=== PATIENT | female | born 1945 | race Caucasian/White ===

== ENCOUNTER 2017-12-30 13:45 | Emergency (ER) | payer BC ==
[~2017-12-30] VITALS: Ht 167.6 cm; Wt 91.0 kg
[2017-12-30 13:54] VITALS: BP 167/80
[2017-12-30] MEDS ORDERED: FLUORESCEIN SODIUM 1MG/STRIP RIGHTEYE ONE (15:00)
[2017-12-30] MEDS ORDERED: TETRACAINE 0.5% OPHTH DROPS 4ML RIGHTEYE ONE (15:00)
[2017-12-30] MEDS ORDERED: TOBRAMYCIN 0.3% OPHTH DROPS 5ML OP STA (15:00)
== END 2017-12-30 15:13 | disposition home or self-care (01) ==
LOC: ER 13:45
DX: S05.00XA Injury of conjunctiva and corneal abrasion without foreign body, unspecified eye, initial encounter (principal); X58.XXXA Exposure to other specified factors, initial encounter; Y93.89 Activity, other specified; Y92.89 Other specified places as the place of occurrence of the external cause; Y99.8 Other external cause status
CPT/HCPCS: 99283

== ENCOUNTER → 2020-01-30 | Outpatient (CLI) | payer OTHER | END | disposition home or self-care (01) | LOC: LAB 16:40 | PROVIDERS: ATTEND Internal Medicine Critical Care Medicine | DX: R05 Cough (principal); Z20.828 Contact with and (suspected) exposure to other viral communicable diseases | CPT/HCPCS: 87635 ==

== ENCOUNTER 2022-09-14 15:09 | Inpatient (IN) | payer BC, OTHER ==
[~2022-09-14] VITALS: Ht 170.2 cm; Wt 106.6 kg
[2022-09-14] VITALS (25 sets, daily range): BP systolic 106–143; BP diastolic 54–89
[2022-09-14] MEDS ORDERED: MORPHINE SULFATE 4 MG/ML CPJ (NOT FOR IM USE) IV STA (15:20)
[2022-09-14] MEDS ORDERED: ASPIRIN 81MG TABLET PO ONE ×2 (15:30→15:45)
[2022-09-14] MEDS ORDERED: LIDOCAINE HCL/PF 1% 10 MG/ML 5ML VIAL ONE (15:42)
[2022-09-14] MEDS ORDERED: IODIXANOL 320MG/ML 100 ML BOTTLE IV ONE ×2 (15:42→16:22)
[2022-09-14] MEDS ORDERED: VERAPAMIL HCL 2.5 MG/1 ML 2ML VIAL IV ONE (15:44)
[2022-09-14] MEDS ORDERED: HEPARIN 5000 UNITS/ML VIAL IV ONE (15:45)
[2022-09-14] MEDS ORDERED: FENTANYL CITRATE/PF 50MCG/ML 2ML VIAL ONE (15:45)
[2022-09-14] MEDS ORDERED: MIDAZOLAM HCL 2 MG/2 ML VIAL ONE (15:46)
[2022-09-14] MEDS ORDERED: DIPHENHYDRAMINE 50MG/ML VIAL ONE (15:50)
[2022-09-14 15:51] LABS: CHLORIDE 107 mEq/L (98-107)
[2022-09-14 15:53] LABS: BASOPHILS % 0.9 % (0.0-2.0); EOSINOPHILS % 2.3 % (0.0-5.0); HEMATOCRIT. 42.9 % (36.0-48.0); HEMOGLOBIN. 14.6 g/dL (12.0-16.0); MEAN CORPUSCULAR HEMOGLOBIN 29.3 pg (28.0-32.0); MEAN CORPUSCULAR VOLUME 85.9 fL (81.0-99.0); MONOCYTES % 8.3 % (2.0-8.0); NEUTROPHILS % 40.5 % (40.0-76.0); PLATELET 351 x1000/uL (130-400); RED BLOOD CELL COUNT 4.99 mill/uL (4.2-5.4); RED CELL DISTRIBUTION WIDTH 13.6 % (11.6-14.6)
[2022-09-14] MEDS ORDERED: TICAGRELOR 90 MG TABLET PO ONE (16:36)
[2022-09-14] MEDS ORDERED: ATROPINE SULFATE 1MG/10ML SYR IV PRN (16:45)
[2022-09-14] MEDS ORDERED: ACETAMINOPHEN 325MG TABLET PO PRN (16:45)
[2022-09-14] MEDS: SODIUM CHLORIDE 0.45% 500 ML IV SCH (17:20)
[2022-09-14 18:14] LABS: INR 1.2; PROTHROMBIN TIME 12.4 sec (9.6-11.0)
[2022-09-14 18:22] LABS: PARTIAL THROMBOPLASTIN TIME 159.3 sec (23.4-31.0)
[2022-09-14] MEDS ORDERED: MAGNESIUM/ALUMINUM HYDROXIDE/SIMETHICONE 30ML UDC PO PRN (18:30)
[2022-09-14] MEDS ORDERED: GUAIFENESIN 200MG/10ML SUGAR FREE UDC PO PRN (18:30)
[2022-09-14] MEDS ORDERED: NALOXONE HCL 0.4MG/ML VIAL IV PRN (19:45)
[2022-09-14] MEDS ORDERED: TRAMADOL 50MG TABLET PO PRN (19:45)
[2022-09-14] MEDS ORDERED: MORPHINE SULFATE 2 MG/ML CPJ (NOT FOR IM USE) IV PRN (19:45)
[2022-09-14] MEDS ORDERED: METOPROLOL TARTRATE 25MG TABLET PO SCH (21:00)
[2022-09-14] MEDS: METOPROLOL TARTRATE 50MG TABLET PO SCH (21:02)
[2022-09-14] MEDS: TICAGRELOR 90 MG TABLET PO SCH (21:02)
[2022-09-14] MEDS: ATORVASTATIN CALCIUM 40MG TABLET PO SCH (21:02)
[2022-09-15] VITALS (60 sets, daily range): BP systolic 57–147; BP diastolic 30–115
[2022-09-15] MEDS: SODIUM CHLORIDE 0.45% 500 ML IV SCH ×3 (01:08→22:03)
[2022-09-15] MEDS: ONDANSETRON HCL 4MG/2ML INJ IV PRN ×2 (04:22→15:10)
[2022-09-15 06:11] LABS: BASOPHILS % 0.3 % (0.0-2.0); EOSINOPHILS % 0.2 % (0.0-5.0); HEMATOCRIT. 39.3 % (36.0-48.0); HEMOGLOBIN. 13.3 g/dL (12.0-16.0); LYMPHOCYTES % 11.5 % (20.0-50.0); MEAN CORPUSCULAR HEMOGLOBIN 29.4 pg (28.0-32.0); MEAN CORPUSCULAR VOLUME 87.2 fL (81.0-99.0); MEAN PLATELET VOLUME 8.7 fl (7.4-10.4); MONOCYTES % 5.2 % (2.0-8.0); NEUTROPHILS % 82.8 % (40.0-76.0); PLATELET 259 x1000/uL (130-400); RED BLOOD CELL COUNT 4.51 mill/uL (4.2-5.4); RED CELL DISTRIBUTION WIDTH 13.5 % (11.6-14.6)
[2022-09-15 06:15] LABS: CHLORIDE 106 mEq/L (98-107)
[2022-09-15] MEDS: ASPIRIN 81MG TABLET PO SCH (09:57)
[2022-09-15] MEDS: METOPROLOL TARTRATE 50MG TABLET PO SCH (09:57)
[2022-09-15] MEDS: TICAGRELOR 90 MG TABLET PO SCH ×2 (09:57→22:01)
[2022-09-15] MEDS ORDERED: PNEUMOCOCCAL 23-VAL P-SAC VAC 0.5 ML IM ONE (10:00)
[2022-09-15] MEDS ORDERED: METOPROLOL SUCCINATE 50MG ER TABLET PO SCH ×2 (11:15→21:00)
[2022-09-15] MEDS: LOSARTAN POTASSIUM 25 MG TABLET PO SCH (11:15)
[2022-09-15] MEDS: FUROSEMIDE 40MG/4ML VIAL IVP NR ×2 (12:05→12:07)
[2022-09-15] MEDS: SPIRONOLACTONE 25MG TABLET PO SCH (12:31)
[2022-09-15] MEDS: ATORVASTATIN CALCIUM 40MG TABLET PO SCH (22:03)
[2022-09-16] VITALS: BP 132/70
[2022-09-16 04:00] VITALS: BP 109/49
[2022-09-16 05:57] LABS: CHLORIDE 107 mEq/L (98-107)
[2022-09-16 06:11] LABS: BASOPHILS % 0.4 % (0.0-2.0); HEMOGLOBIN. 11.5 g/dL (12.0-16.0); LYMPHOCYTES % 24.8 % (20.0-50.0); MEAN CORPUSCULAR HEMOGLOBIN 29.7 pg (28.0-32.0); MEAN CORPUSCULAR VOLUME 87.6 fL (81.0-99.0); MEAN PLATELET VOLUME 8.8 fl (7.4-10.4); MONOCYTES % 10.3 % (2.0-8.0); NEUTROPHILS % 63.5 % (40.0-76.0); PLATELET 182 x1000/uL (130-400); RED BLOOD CELL COUNT 3.88 mill/uL (4.2-5.4); RED CELL DISTRIBUTION WIDTH 13.3 % (11.6-14.6)
[2022-09-16 08:00] VITALS: BP 101/63
[2022-09-16] MEDS ORDERED: POTASSIUM CHLORIDE 20MEQ TABLET SR PO NR (08:00)
[2022-09-16] MEDS: TICAGRELOR 90 MG TABLET PO SCH (08:17)
[2022-09-16] MEDS: ASPIRIN 81MG TABLET PO SCH (08:17)
[2022-09-16] MEDS: LOSARTAN POTASSIUM 25 MG TABLET PO SCH (08:17)
[2022-09-16] MEDS: SPIRONOLACTONE 25MG TABLET PO SCH (08:18)
[2022-09-16] MEDS: SODIUM CHLORIDE 0.45% 500 ML IV SCH (08:24)
[2022-09-16] MEDS ORDERED: ASPI-1160 PO (13:45)
[2022-09-16] MEDS ORDERED: DICL100G31 TP (13:45)
[2022-09-16] MEDS ORDERED: LOSA25TA3 PO (13:45)
[2022-09-16] MEDS ORDERED: TICA90TA PO (13:45)
[2022-09-16] MEDS ORDERED: METO-385 PO (13:45)
[2022-09-16] MEDS ORDERED: LIP40 PO (13:45)
[2022-09-16] MEDS ORDERED: SPIR25TA PO (13:45)
[2022-09-16 13:53] VITALS: BP 111/51
[2022-09-16] MEDS ORDERED: METOPROLOL SUCCINATE 50MG ER TABLET PO SCH (21:00)
[2022-09-17] MEDS ORDERED: SPIRONOLACTONE 25MG TABLET PO SCH (09:00)
[2022-09-17] MEDS ORDERED: LOSARTAN POTASSIUM 25 MG TABLET PO SCH (09:00)
== END 2022-09-16 15:15 | disposition home or self-care (01) | DRG 246 ==
LOC: ER 15:09 → CVICU 16:03 → EEVIPCON 16:03 → EDBEDREQ 16:05 → EDBEDREQTM 16:05 → CVICU 16:59 → 3WST 09-15 21:14
PROVIDERS: ADMIT Internal Medicine; ATTEND Internal Medicine
PROC: 027034Z Dilation of Coronary Artery, One Artery with Drug-eluting Intraluminal Device, Percutaneous Approach (ICD-10-PCS; principal; 2022-09-14)
PROC: 4A023N7 Measurement of Cardiac Sampling and Pressure, Left Heart, Percutaneous Approach (ICD-10-PCS; 2022-09-14)
PROC: B211YZZ Fluoroscopy of Multiple Coronary Arteries using Other Contrast (ICD-10-PCS; 2022-09-14)
DX: I21.19 ST elevation (STEMI) myocardial infarction involving other coronary artery of inferior wall (principal); I50.23 Acute on chronic systolic (congestive) heart failure; I16.9 Hypertensive crisis, unspecified; E66.9 Obesity, unspecified; I50.9 Heart failure, unspecified; E78.5 Hyperlipidemia, unspecified; M25.569 Pain in unspecified knee; E87.6 Hypokalemia; I11.0 Hypertensive heart disease with heart failure; I34.0 Nonrheumatic mitral (valve) insufficiency; I07.1 Rheumatic tricuspid insufficiency; I27.20 Pulmonary hypertension, unspecified; I25.10 Atherosclerotic heart disease of native coronary artery without angina pectoris; R73.03 Prediabetes; Z82.49 Family history of ischemic heart disease and other diseases of the circulatory system
CPT/HCPCS: 36415; 71045; 73560; 73562; 80048; 80053; 80061; 83036; 83735; 83880; 84100; 84484; 85025; 85347; 90732; 92928; 93005; 93306; 93458; 97163; 99291; C1725; C1769; C1874; C1887; J1200; J1644; J2250; J2270; J2405; J3010; J3490; L1830; Q9967; J8499

== ENCOUNTER → 2022-12-14 | Outpatient (CLI) | payer BC ==
[~2022-12-14] MED LIST: ASPI-1160 PO; DICL100G31 TP; LIP40 PO; LOSA25TA3 PO; METO-385 PO; POTA-202 MT; SACU1TAB7 MT; SPIR25TA PO; TICA90TA PO
[2022-12-14 10:02] LABS: CHLORIDE 107 mEq/L (98-107)
[2022-12-14 10:10] LABS: HDL CHOLESTEROL 45 mg/dL (40-59); LDL CHOLESTEROL 115 mg/dL (5-100)
== END | disposition home or self-care (01) ==
LOC: CARD 08:35
PROVIDERS: ATTEND Internal Medicine
DX: I08.1 Rheumatic disorders of both mitral and tricuspid valves (principal); I50.9 Heart failure, unspecified; I48.91 Unspecified atrial fibrillation
CPT/HCPCS: 36415; 80053; 80061; 93306

== ENCOUNTER → 2023-02-23 | Day surgery (SDC) | payer BC | END | disposition home or self-care (01) | LOC: CARD 07:11 | PROVIDERS: ATTEND Internal Medicine | DX: I34.0 Nonrheumatic mitral (valve) insufficiency (principal); I50.9 Heart failure, unspecified; Z87.891 Personal history of nicotine dependence; Z79.82 Long term (current) use of aspirin; Z79.899 Other long term (current) drug therapy; Z82.49 Family history of ischemic heart disease and other diseases of the circulatory system | CPT/HCPCS: 93306 ==

== ENCOUNTER → 2023-05-27 | Outpatient (CLI) | payer BC ==
[~2023-05-27] MED LIST changes: +CLOP-31 PO; +FURO-151 PO; +FURO80TA87 PO; -LOSA25TA3 PO; -METO-385 PO; +METO-396 PO; -SACU1TAB7 MT; +SACU1TAB7 PO; -TICA90TA PO
[2023-05-27 07:00] LABS: CHLORIDE 110 mEq/L (98-107); INDEX HEMOLYSI 1 (1-3); INDEX ICTERIC 1 (1-4); INDEX LIPEMIC 1 (1-3); POTASSIUM 3.7 mEq/L (3.5-5.1); SODIUM 140 mEq/L (136-145)
[2023-05-27 07:18] LABS: ALANINE AMINOTRANSFERASE 17 IU/L (13-61); ALBUMIN 3.5 g/dL (3.4-5.0); ASPARTATE AMINOTRANSFERASE 16 IU/L (15-37); BILIRUBIN TOTAL 0.4 mg/dL (0.1-1.0); CALCIUM 8.8 mg/dL (8.5-10.1); CARBON DIOXIDE 25 mEq/L (21-32); CHOLESTEROL 182 mg/dL (<200); CREATININE 1.1 mg/dL (0.6-1.3); GLUCOSE 125 mg/dL (70-105); HDL CHOLESTEROL 40 mg/dL (40-59); LDL CHOLESTEROL 110 mg/dL (5-100); PROTEIN TOTAL 6.5 g/dL (6.0-8.3); TRIGLYCERIDE 264 mg/dL (0-150); UREA NITROGEN BLOOD 34 mg/dL (7-21)
== END | disposition home or self-care (01) ==
LOC: LAB 06:14
PROVIDERS: ATTEND Internal Medicine
DX: I50.9 Heart failure, unspecified (principal); I25.10 Atherosclerotic heart disease of native coronary artery without angina pectoris
CPT/HCPCS: 36415; 80053; 80061; 83036

== ENCOUNTER 2023-12-09 06:56 | Day surgery (SDC) | payer BC ==
[~2023-12-09] VITALS: Ht 162.6 cm; Wt 93.0 kg
[~2023-12-09 06:56] MED LIST changes: -DICL100G31 TP; +DICL100G58 TP
[2023-12-09 07:27] LABS: BASOPHILS % 0.5 % (0.0-2.0); EOSINOPHILS % 3.3 % (0.0-5.0); HEMATOCRIT. 34.4 % (36.0-48.0); HEMOGLOBIN. 11.7 g/dL (12.0-16.0); LYMPHOCYTES % 22.1 % (20.0-50.0); MEAN CORPUSCULAR HEMOGLOBIN 30.2 pg (28.0-32.0); MEAN CORPUSCULAR VOLUME 88.8 fL (81.0-99.0); MEAN PLATELET VOLUME 8.4 fl (7.4-10.4); MONOCYTES % 8.3 % (2.0-8.0); NEUTROPHILS % 65.8 % (40.0-76.0); PLATELET 239 x1000/uL (130-400); RED BLOOD CELL COUNT 3.88 mill/uL (4.2-5.4); RED CELL DISTRIBUTION WIDTH 12.8 % (11.6-14.6); WHITE BLOOD COUNT 5.9 x1000/uL (4.5-11.0)
[2023-12-09 07:51] LABS: CALCIUM 8.8 mg/dL (8.7-10.4); CREATININE 1.2 mg/dL (0.6-1.0); POTASSIUM 3.5 mEq/L (3.5-5.1)
[2023-12-09] MEDS ORDERED: IODIXANOL 320MG/ML 100 ML BOTTLE IV ONE ×2 (08:50→10:30)
[2023-12-09] MEDS ORDERED: HEPARIN 1000 UNITS/ML 10ML ONE (08:50)
[2023-12-09] MEDS ORDERED: DIPHENHYDRAMINE 50MG/ML VIAL ONE (08:50)
[2023-12-09] MEDS ORDERED: VERAPAMIL HCL 2.5 MG/1 ML 2ML VIAL IV ONE (08:50)
[2023-12-09] MEDS ORDERED: LIDOCAINE HCL 1% 10 MG/ML 10ML VIAL ONE ×2 (08:51→09:31)
[2023-12-09] MEDS ORDERED: MIDAZOLAM HCL 2 MG/2 ML VIAL ONE ×2 (09:12→10:32)
[2023-12-09] MEDS ORDERED: FENTANYL CITRATE/PF 50MCG/ML 2ML VIAL ONE (09:12)
[2023-12-09] MEDS ORDERED: SODIUM CHLORIDE 0.45% 250 ML IV SCH (12:00)
[2023-12-09] MEDS ORDERED: ACETAMINOPHEN 325MG TABLET PO PRN (12:00)
[2023-12-09] MEDS ORDERED: ATROPINE SULFATE 1MG/10ML SYR IV PRN (12:00)
[2023-12-09] MEDS ORDERED: SODIUM CHLORIDE 0.45% 250 ML IV ONE (12:00)
== END 2023-12-09 17:20 | disposition home or self-care (01) ==
LOC: CCL 06:56
PROVIDERS: ATTEND Internal Medicine
DX: I25.110 Atherosclerotic heart disease of native coronary artery with unstable angina pectoris (principal); E11.9 Type 2 diabetes mellitus without complications; I25.2 Old myocardial infarction; I50.9 Heart failure, unspecified; Z86.73 Personal history of transient ischemic attack (TIA), and cerebral infarction without residual deficits; Z95.810 Presence of automatic (implantable) cardiac defibrillator; Z87.891 Personal history of nicotine dependence; Z79.82 Long term (current) use of aspirin; Z79.899 Other long term (current) drug therapy; Z98.890 Other specified postprocedural states; Z82.49 Family history of ischemic heart disease and other diseases of the circulatory system
CPT/HCPCS: 93458; 80048; 85025; 85347; 36415; C1769 ×3; J3010; Q9967; J1200; J1644 ×2; J3490 ×2; J2250; C1887 ×2; 99152; 99153; G0500

== ENCOUNTER 2025-06-13 06:37 | Inpatient (IN) | payer BC ==
[~2025-06-13] VITALS: Ht 165.1 cm; Wt 101.6 kg
[~2025-06-13 06:37] MED LIST changes: -FURO-151 PO; +FURO40TA5 PO; -FURO80TA87 PO; +SACU1TAB MT; -SACU1TAB7 PO; -SPIR25TA PO
[2025-06-13 07:03] LABS: BASOPHILS % 0.7 % (0.0-2.0); EOSINOPHILS % 2.2 % (0.0-5.0); HEMATOCRIT. 36.1 % (36.0-48.0); HEMOGLOBIN. 12.1 g/dL (12.0-16.0); LYMPHOCYTES % 19.1 % (20.0-50.0); MEAN PLATELET VOLUME 7.7 fl (7.4-10.4); MONOCYTES % 6.9 % (2.0-8.0); NEUTROPHILS % 71.1 % (40.0-76.0); PLATELET 304 x1000/uL (130-400); RED BLOOD CELL COUNT 4.01 mill/uL (4.2-5.4); RED CELL DISTRIBUTION WIDTH 12.9 % (11.6-14.6)
[2025-06-13] MEDS ORDERED: TICA90TA PO (07:14)
[2025-06-13 07:17] LABS: INR 1.0
[2025-06-13] MEDS ORDERED: LIDOCAINE HCL 1% 20ML VIAL ONE (07:23)
[2025-06-13] MEDS ORDERED: HEPARIN 1000 UNITS/ML 10ML ONE ×2 (07:23→09:10)
[2025-06-13] MEDS ORDERED: IODIXANOL 320MG/ML 100 ML BOTTLE IV ONE ×2 (07:23→09:12)
[2025-06-13] MEDS ORDERED: VERAPAMIL HCL 2.5 MG/1 ML 2ML VIAL IV ONE (07:23)
[2025-06-13 07:34] LABS: UREA NITROGEN BLOOD 31.0 mg/dL (9-23)
[2025-06-13] MEDS ORDERED: SPIR25TA6 PO (07:40)
[2025-06-13 07:57] LABS: CREATININE 1.7 mg/dL (0.6-1.0)
[2025-06-13] MEDS ORDERED: MIDAZOLAM HCL 2 MG/2 ML VIAL ONE (08:25)
[2025-06-13] MEDS ORDERED: DIPHENHYDRAMINE 50MG/ML VIAL ONE (08:25)
[2025-06-13] MEDS ORDERED: FENTANYL CITRATE/PF 50MCG/ML 2ML VIAL ONE (08:25)
[2025-06-13] MEDS ORDERED: ASPIRIN 81MG TABLET ONE (09:38)
[2025-06-13] MEDS ORDERED: TICAGRELOR 90 MG TABLET PO ONE (09:39)
[2025-06-13] MEDS ORDERED: ACETAMINOPHEN 325MG TABLET PO PRN (10:30)
[2025-06-13] MEDS ORDERED: ATROPINE SULFATE 1MG/10ML SYR IV PRN (10:30)
[2025-06-13] MEDS: SODIUM CHLORIDE 0.45% 500 ML IV ONE (10:56)
[2025-06-13 14:17] VITALS: BP 104/43; PULSE 86; RESP 16; TEMP 36.5292
[2025-06-13 16:00] VITALS: BP 113/50; PULSE 92; RESP 16; TEMP 36.7; O2SAT 97
[2025-06-13 20:00] VITALS: BP 91/77; PULSE 86; RESP 14; TEMP 36.7; O2SAT 96
[2025-06-13] MEDS: POTASSIUM CHLORIDE 20MEQ TABLET SR PO SCH (21:26)
[2025-06-13] MEDS: TICAGRELOR 90 MG TABLET PO SCH (21:26)
[2025-06-14] VITALS: BP 98/56; PULSE 88; RESP 16; TEMP 36.8; O2SAT 98
[2025-06-14 04:00] VITALS: BP 97/60; PULSE 85; RESP 12; TEMP 36.9; O2SAT 97
[2025-06-14 07:29] LABS: BASOPHILS % 0.4 % (0.0-2.0); EOSINOPHILS % 2.9 % (0.0-5.0); HEMATOCRIT. 31.9 % (36.0-48.0); HEMOGLOBIN. 10.9 g/dL (12.0-16.0); LYMPHOCYTES % 23.1 % (20.0-50.0); MEAN PLATELET VOLUME 8.4 fl (7.4-10.4); MONOCYTES % 8.4 % (2.0-8.0); NEUTROPHILS % 65.2 % (40.0-76.0); PLATELET 236 x1000/uL (130-400); RED BLOOD CELL COUNT 3.53 mill/uL (4.2-5.4); RED CELL DISTRIBUTION WIDTH 12.6 % (11.6-14.6)
[2025-06-14 07:59] LABS: CREATININE 1.3 mg/dL (0.6-1.0); UREA NITROGEN BLOOD 21.0 mg/dL (9-23)
[2025-06-14 08:00] VITALS: BP 119/48; PULSE 89; RESP 12; TEMP 36.6; O2SAT 97
[2025-06-14] MEDS: ASPIRIN 81MG TABLET PO SCH (08:17)
[2025-06-14] MEDS ORDERED: ASPIRIN 325MG TABLET PO SCH (09:00)
[2025-06-14 11:55] VITALS: BP 119/48; PULSE 89; RESP 12; TEMP 97.8
== END 2025-06-14 12:25 | disposition home or self-care (01) | DRG 322 ==
LOC: CCL 06:37 → 3WST 14:35
PROVIDERS: ADMIT Internal Medicine; ATTEND Internal Medicine
PROC: 027034Z Dilation of Coronary Artery, One Artery with Drug-eluting Intraluminal Device, Percutaneous Approach (ICD-10-PCS; principal; 2025-06-13)
PROC: 02703ZZ Dilation of Coronary Artery, One Artery, Percutaneous Approach (ICD-10-PCS; 2025-06-13)
PROC: 4A023N7 Measurement of Cardiac Sampling and Pressure, Left Heart, Percutaneous Approach (ICD-10-PCS; 2025-06-13)
PROC: B211YZZ Fluoroscopy of Multiple Coronary Arteries using Other Contrast (ICD-10-PCS; 2025-06-13)
DX: I25.110 Atherosclerotic heart disease of native coronary artery with unstable angina pectoris (principal); I13.0 Hypertensive heart and chronic kidney disease with heart failure and stage 1 through stage 4 chronic kidney disease, or unspecified chronic kidney disease; I50.22 Chronic systolic (congestive) heart failure; N18.9 Chronic kidney disease, unspecified; I25.82 Chronic total occlusion of coronary artery; E78.5 Hyperlipidemia, unspecified; I25.2 Old myocardial infarction; Z95.810 Presence of automatic (implantable) cardiac defibrillator; Z95.5 Presence of coronary angioplasty implant and graft
CPT/HCPCS: 36415; 80048; 85025; 85347; 92928; 93308; 93458; A4606; C1769; C1874; C1887; C1893; J1200; J1644; J2003; J2250; J3010; J3490; Q9967; J8499